=== PATIENT | male | born 1970 | race African-American/Black ===

== ENCOUNTER 2018-09-23 12:51 | Emergency (ER) | payer MEDICARE, MEDICAID ==
[~2018-09-23] VITALS: Ht 185.4 cm; Wt 115.9 kg
[~2018-09-23 12:51] MED LIST: ADALAT CC30 MG PO; ADVAIR DISK1 IN; AMBIEN10 MG PO; AMOXICILLIN500 MG PO; ASMANEX 120220 MCG IN; ASMANEX 30110 MCG IN; ASPIRINCHW 81MG PO; ATROVENT NAS0.03 %; AUGMENTIN875 MG PO; AUGMENTIN875TAB OR; BABY ASPIRIN81 MG PO; CEPHALEXIN500 M1 PO; CIPRO XR500 MG PO; CIPRO500 MG OR; CLARITIN10 MG OR; CLARITIN10 MG PO; COMBIVENT IN; COMBIVENT INH; COMBIVENT RESPIMAT IN; DOXYCYC MONO100 M1 OR; EFFEXOR75 MG OR; FLOMAX0.4 M1 PO; FLONASE NASAL50 MCG; K-DUR/KLOR-CON10 MEQ PO; LASIX40 MG PO; LORTAB 7.5 OR; LORTAB5 OR; MEDDOSEPAK OR; MEDDOSEPAK PO; METHOCARBAM500 MG PO; NAPROSYN500 MG OR; NAPROSYN500 MG PO; NASONEX50 MCG/AC; OMEPRAZOLE40 MG PO; ONDANSETRON4 MG OR; PLAVIX75 MG OR; POOR HISTORIAN; PRAVACHOL10 MG OR; PREVACID30 M1 OR; PRILOSEC20 MG/CAP PO; PROCARDIA XL30 MG PO; PROZAC20 MG OR; PROZAC40 MG OR; ROBITUSSIN AC10 ML OR; ROBITUSSIN AC10 ML PO; SILVADENE1 % EX; SINGULAIR10 MG PO; TOPROL XL50 MG PO; ULTRAM50 M1 PO; VASOTEC20 MG OR; VASOTEC20 MG PO; VASOTEC5 MG PO; ZITHROMAX250 MG OR; ZITHROMAX250 MG PO
[2018-09-23] MEDS ORDERED: AUGMENTIN875TAB PO (13:24)
[2018-09-23 14:18] VITALS: BP 135/85
== END 2018-09-23 14:18 | disposition home or self-care (01) ==
LOC: ED 12:51
DX: R05 Cough (principal); R09.81 Nasal congestion; J34.89 Other specified disorders of nose and nasal sinuses; J32.0 Chronic maxillary sinusitis; F17.290 Nicotine dependence, other tobacco product, uncomplicated

== ENCOUNTER 2018-10-12 13:08 | Emergency (ER) | payer MEDICARE, MEDICAID ==
[~2018-10-12] VITALS: Ht 185.4 cm; Wt 12.0 kg
[~2018-10-12 13:08] MED LIST changes: +AUGMENTIN875TAB PO
[2018-10-12 14:00] LABS: HEMATOCRIT 40.6 % (39.0-50.0); HEMOGLOBIN 13.9 g/dl (14.0-18.0); IMMATURE GRANULOCYTES 0.2 % (0.0-5.0); MEAN CELL VOLUME 88.1 fL CALC (80.0-100.0); MEAN CORPUSCULAR HGB 30.2 pG CALC (26.0-32.0); MEAN CORPUSCULAR HGB CONC 34.2 g/L CALC (32.0-36.0); NEUT# 2.95 thou/uL (1.82-7.42); RED BLOOD COUNT 4.61 mill/uL (4.70-6.10); RED CELL DISTRI WIDTH 13.8 % (11.5-15.5)
[2018-10-12] MEDS ORDERED: PROVENTIL HFA IN (14:45)
[2018-10-12] MEDS ORDERED: ZITHROMAX250 MG PO (14:45)
[2018-10-12 15:11] VITALS: BP 139/77
== END 2018-10-12 15:16 | disposition home or self-care (01) ==
LOC: ED 13:08
PROVIDERS: Emergency Medicine
DX: J40 Bronchitis, not specified as acute or chronic (principal); I10 Essential (primary) hypertension; J45.909 Unspecified asthma, uncomplicated; G47.30 Sleep apnea, unspecified; F17.200 Nicotine dependence, unspecified, uncomplicated

== ENCOUNTER 2020-01-03 | Emergency (ER) | payer MEDICARE, MEDICAID ==
[~2020-01-03] MED LIST changes: +PROVENTIL HFA IN
[2020-01-03] MEDS ORDERED: PREDNISONE10 MG PO (12:17)
[2020-01-03] MEDS ORDERED: AMOX/K CLAV875 M1 PO (12:17)
== END 2020-01-03 12:42 | disposition home or self-care (01) ==
DX: J01.90 Acute sinusitis, unspecified (principal); J20.9 Acute bronchitis, unspecified; I10 Essential (primary) hypertension; F17.200 Nicotine dependence, unspecified, uncomplicated
CPT/HCPCS: J0561